=== PATIENT | male | born 1945 ===

== ENCOUNTER → 2018-08-20 | Outpatient (CLI) | payer OTHER ==
[~2018-08-20] MED LIST: ENALAPRIL MALEA20 MG; LIPITOR40 MG; PLAVIX75 MG; TAMS0.4C
== END | disposition home or self-care (01) ==
LOC: MRI 07:28
DX: R93.3 Abnormal findings on diagnostic imaging of other parts of digestive tract (principal)
CPT/HCPCS: 74183; A9575